=== PATIENT | female | born 2000 | race Caucasian/White ===

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

== ENCOUNTER → 2022-08-20 | Outpatient (CLI) | payer BC ==
--- NOTE | 2022-08-22 09:39 | MR ---
EXAMINATION TYPE: MR pituitary wo/w con DATE OF EXAM: 08/20/2022 8:10 AM CLINICAL INDICATION:Female, 21 years old with history of D35.2 BENIGN NEOPLASM OF PITUITARY GLAND; Ab normal thyroid blood test, pituitary adenoma with TSH production COMPARISON: CT brain on 06/24/2018 TECHNIQUE: Multi planar, multi sequence imaging was performed through the brain. Specialized thin s equences were obtained through the pituitary gland/sella turcica. Pre-and post gadolinium sequences were obtained. IV Contrast: 9 cc Gadavist FINDINGS: The flores-white junctions, ventricular system, and basal cisterns appear unremarkable. The morphology of the pituitary gland is within normal limits. The pituitary stalk is not deviated. After administ ration of gadolinium, homogeneous pituitary enhancement is seen. The intracranial arterial flow voids are intact. IMPRESSION: 1. No pituitary gland abnormality. 2. No evidence of intracranial mass nor acute/subacute CVA.
== END | disposition home or self-care (01) ==
LOC: RADMRIMAIN 07:28
PROVIDERS: ATTEND Internal Medicine Endocrinology, Diabetes & Metabolism
DX: D35.2 Benign neoplasm of pituitary gland (principal); R79.89 Other specified abnormal findings of blood chemistry
CPT/HCPCS: 70553; A9585